=== PATIENT | female | born 2005 | race Caucasian/White ===

== ENCOUNTER 2025-04-10 09:52 | Emergency (ER) | payer OTHER, SELFPAY ==
[2025-04-10 09:58] VITALS: BP 108/71
--- NOTE | 2025-04-10 11:20 | ED.GENMED ---
History of Present Illness
General
Chief Complaint: Headache
Source: patient
Exam Limitations: none
Time Seen by Provider: 04/10/25 10:48
Nursing documentation reviewed up to this point in time: agreed with
History of Present Illness
History of Present Illness:
20-year-old female presents to the ER for evaluation. She starting 5 days ago she started with muscle aches and chills 3 days ago started with headache, joint pain and fatigue.
She does report that she does get some posterior neck pain with headache at times. Currently she only has very minimal headache. She complains of feeling very tired muscle aches some joint pain and does not feel herself. She does mention that
on 29 March she got bit by tick and had a weird rash to her left thigh recently however this rash has since resolved. She did bring a picture of the rash on her phone rash to her thigh was more lacy and red and not consistent with bull's-eye. She
complains of joint pain fatigue.
She complains of mild scratchy throat but denies sore throat . She denies any nasal congestion URI symptoms.
Patient went to urgent care prior to arrival and was tested for COVID which was negative. They also did a monotest. While there they also noticed that blood pressure was low at 80/60 and sent her here for evaluation
Past History
Social History
Tobacco: Non-smoker
Alcohol: None
Drug: None
Review of Systems
Review of Systems
Allergies reviewed?: Yes
All Other Systems: ROS reviewed and negative except as documented in HPI and ROS
Constitutional: Reports fatigue and chills
EENT: Reports no symptoms
Respiratory: Reports no symptoms
Cardiac: Reports no symptoms
ABD/GI: Reports no symptoms
: Reports no symptoms
Musculoskeletal: Reports other (muscle aches )
Skin: Reports rash (had rash to leg which resolved )
Neurological: Reports headache
Psychiatric: Reports no symptoms
Phy Exam
General Physical Exam
General Presentation: no apparent distress
General age: appears stated age
General Skin: warm and dry
General Habitus: normal
General Mental: alert
General Hydration: appears well hydrated
Cardiovascular Exam
Cardiovascular Exam: regular rate/rhythm, no murmur and normal peripheral pulses
Pulmonary Exam
Pulmonary Exam: lungs clear and no respiratory distress
Neurological Exam
Neurological Exam: alert and oriented x3
Musculoskeletal Exam
Musculoskeletal Exam: full ROM
Skin Exam
Skin Exam: normal color and warm/dry
Psychiatric Exam
Psychiatric Exam: normal mood/affect
Course
Orders/Labs/Results
Orders:
Orders
04/10/25 11:38
IV Insert/Care/Rem.- Treatment PRN
04/10/25 11:39
0.9% Sodium Chloride 1000 ml [Nss] 1,000 ml IV BOLUS
Ketorolac [Toradol] 15 mg IV NOW STA
04/10/25 11:46
Complete Blood Count/With Diff Urgent
Comprehensive Metabolic Panel Urgent
HCG, Serum Qualitative Screen Urgent
Comment: ADD ON
Lyme Progressive Urgent
Monotest Urgent
TSH Reflex To Free T4 Urgent
Influenza A+B Rapid Molecular Urgent
JEB Source: Nasal Swab
Specimen Description:
Rapid Strep Group A Urgent
JEB Source: Throat/Pharynx
Specimen Description:
Date Specimen was Collected: 04/10/25
Time Specimen was Collected: 11:40
04/10/25 13:45
Add On- LAB Urgent
Tests Added?: serum hcg qualitative
Doxycycline [Vibramycin] 100 mg PO NOW STA
04/10/25 14:12
Vital Signs- Treatment ONCE
Frequency: Once
Abnormal Lab Results
04/10/25
11:46
MCH 31.1 H pg
(27.0-31.0)
MPV 11.7 H fL
(7.4-10.4)
Absolute Monos (auto) 0.7 H 10^3/uL
(0.1-0.6)
Lymphocytes % 19.4 L %
(20.5-51.1)
Monocytes % 12.2 H %
(1.7-9.3)
Chloride 108 H mmol/L
(98-107)
Glucose 59 L mg/dl
(70-99)
Alkaline Phosphatase 35 L U/L
(38-126)
04/10/25 11:46
04/10/25 11:46
Vital Signs
Initial and Last Documented VS:
Initial Vital Signs
Temp Pulse Resp BP Pulse Ox
97.7 F 87 16 108/71 100
04/10/25 09:58 04/10/25 09:58 04/10/25 09:58 04/10/25 09:58 04/10/25 09:58
Last Documented Vital Signs
Temp Pulse Resp BP Pulse Ox
97.7 F 79 14 102/60 100
04/10/25 09:58 04/10/25 13:45 04/10/25 13:45 04/10/25 14:29 04/10/25 14:30
MDM/Problems Addressed
MDM/Problems Addressed:
Patient is a 20-year-old female who complains of fatigue chills muscle aches joint pain headache for the past several days. She recently had a tick bite and noticed a rash to her left thigh however reports rash has resolved. She does report that
while at urgent care her blood pressure was on the lower side. Patient presents awake alert no acute distress no evidence of meningismus she is nontoxic afebrile stable vital signs. White count is normal electrolytes were normal however blood
sugar was minimally low patient has since eaten. Patient was given fluids and Toradol feeling better. Patient was tested negative for COVID urgent care, and flu and mono were negative here. Lyme is pending. Will treat for Lyme with doxycycline
First dose given here in the ER.
Patient currently is not a family doctor and is scheduled to move to [place] next week discussed close outpatient follow-up in the meantime with family practice clinic and discussed to return if any worsening of symptoms. She is well-appearing and
stable.
*Pulse Oximetry
Patient hypoxic: no
*Critical Care Note
Total Time (30-74mins, 75-104mins- exclusive of procedures): Not Applicable
ED Attending Note
-
Portions of this chart may have been created with voice recognition software.� Occasional wrong word or��sound alike� substitutions may have occurred due to the inherent limitations of voice recognition software.
Discharge Plan
Departure
Patient Disposition: Home (Routine Discharge)
Date of Disposition: 04/10/25
Time of Disposition: 14:14
Patient with high blood pressure during this ER visit?: No
Condition: Fair
Covid-19: Not Applicable
Discharge Problem:
Fatigue, Myalgia, arthalgia
Instructions: Fatigue (DC), Muscle, joint, and bone pain - Discharge instructions
Prescriptions:
New
doxycycline hyclate 100 mg capsule
100 mg PO BID Qty: 42 0RF
No Action
ibuprofen 600 MG tablet
600 mg PO Q6 Qty: 20 0RF
ibuprofen 600 MG tablet
600 mg PO QIDPRN PRN (Reason: pain) Qty: 30 0RF
Referrals:
[facility] [Outside]
Aiden Gonsalez MD [Family Provider, Pediatrics]
Activity Restrictions/Additional Instructions:
As discussed you will be treated for Lyme however Lyme test pending at this time. you were given the first dose of antibiotic here in the ER and prescription was sent to pharmacy.
Stay well hydrated
Please closely follow-up with family practice clinic for reevaluation prior to traveling out of state. Return if any worsening of symptoms including worsening symptoms worsening headache.
Interventions
Interventions:
*Risk Screen - Suicide Last Done: 04/10/25 09:58
*General Assessment Last Done: 04/10/25 11:39
*Neglect/Abuse Screening Last Done: 04/10/25 11:39
*ED- Fall Risk Assessment Last Done: 04/10/25 11:39
*ED COVID-19 Vaccine History Last Done: 04/10/25 09:58
*Nursing Disposition Last Done: 04/10/25 14:41
ED- Neurological Assessment Last Done: 04/10/25 11:39
Discharge Date and Time
Discharge Date/Time: 04/10/25 14:46
Print Language: WOLOF
[2025-04-10] MEDS: TORADOL 15 MG IV (11:51)
[2025-04-10 11:52] VITALS: BMI 22.8
[2025-04-10] MEDS: NSS 1000 IV (11:52)
[2025-04-10 12:00] VITALS: BP 97/75
[2025-04-10 12:19] LABS: % Basophils 0.8 % (0-2); % Eosinophils 1.8 % (0-6); % Immature Granulocytes 0.3 % (0-0.5); % Lymphocytes 19.4 % (20.5-51.1); % Monocytes 12.2 % (1.7-9.3); % Neutrophils 65.5 % (42.2-75.2); Absolute Basophils 0.1 10^3/uL (0-0.2); Absolute Eosinophils 0.1 10^3/uL (0-0.7); Absolute Lymphocytes 1.2 10^3/uL (1.2-3.4); Absolute Monocytes 0.7 10^3/uL (0.1-0.6); Absolute Neutrophils 3.9 10^3/uL (1.4-6.5); Hematocrit 39.4 % (37.0-47.0); Hemoglobin 13.6 g/dL (12.0-16.0); Mean Corp Hgb Conc. 34.5 g/dL (33.0-37.0); Mean Corpuscular Hgb 31.1 pg (27.0-31.0); Mean Platelet Volume 11.7 fL (7.4-10.4); Nucleated Red Blood Cells % 0 %; Platelet Count 221 10^3/uL (130-400); Red Blood Cell Count 4.38 10^6/uL (4.20-5.40)
[2025-04-10 12:31] LABS: Albumin 4.2 g/dl (3.5-5.0); Carbon Dioxide 27 mmol/L (22-30)
[2025-04-10 12:35] LABS: Monotest Negative (Negative)
[2025-04-10 12:45] LABS: ALT (SGPT) 21 U/L (0-35); AST (SGOT) 27 U/L (14-36); Alkaline Phosphatase 35 U/L (38-126); Blood Urea Nitrogen 12 mg/dl (7-17); Calcium 9.5 mg/dl (8.4-10.2); Chloride 108 mmol/L (98-107); Estimated Creatinine Clearance 118 ml/min; Glucose 59 mg/dl (70-99); Potassium 4.3 mmol/L (3.5-5.1); Sodium 140 mmol/L (135-145); Total Bilirubin 0.5 mg/dl (0.2-1.3); Total Protein 6.8 g/dl (6.3-8.2); eGFR > 60.00
[2025-04-10 13:00] VITALS: BP 98/72
[2025-04-10 13:37] VITALS: BP 103/65
[2025-04-10 14:29] VITALS: BP 102/60
[2025-04-10] MEDS: VIBRAMYCIN 100 MG PO (14:30)
[2025-04-10 14:34] LABS: HCG, Serum Qualitative Screen Negative
[2025-04-13 13:11] LABS: Lyme Antibody Screen, EIA Negative (Negative)
== END 2025-04-10 14:46 | disposition home or self-care (01) ==
LOC: EMR 09:52
PROVIDERS: Nurse Practitioner; EMERGENCY PHYSICIAN Emergency Medicine; FAMILY PHYSICIAN Pediatrics
DX: M25.50 Pain in unspecified joint (principal); M79.10 Myalgia, unspecified site; R53.83 Other fatigue
CPT/HCPCS: 99284; 96374; 96361; 80053; 84443; 84703; 85025; 86308; 86618; 87070; 87502; 87880